=== PATIENT | male | born 1985 | race Caucasian/White ===

== ENCOUNTER 2018-05-11 10:39 | Emergency (ER) | payer OTHER ==
[~2018-05-11] VITALS: Ht 182.9 cm; Wt 146.0 kg
[~2018-05-11 10:39] MED LIST: METH-360 PO
[2018-05-11 11:06] LABS: CLARITY,URINE TURBID (Clear); COLOR,URINE YELLOW (Yellow); GLUCOSE, URINE NEGATIVE (Neg); KETONES,URINE NEGATIVE (Neg); LEUKOCYTE ESTERASE ,URINE NEGATIVE (Neg); NITRITES, URINE NEGATIVE (Neg); OCCULT BLOOD,URINE LARGE (Neg); PH,URINE 5.5 (4.8-8.0); PROTEIN,URINE 30 mg/dl (Neg); UROBILINOGEN,URINE 0.2 E.U/dL (0.2-1.0)
[2018-05-11 11:07] LABS: UA COLLECTION TYPE CLN CATCH MIDSTREAM
[2018-05-11] MEDS ORDERED: normal saline 1000ML IV soln IVB ONE (11:10)
[2018-05-11] MEDS ORDERED: ondansetron/PF 4mg/2ml inj IV ONE (11:10)
[2018-05-11] MEDS ORDERED: ketorolac trometh. 30mg/ml inj. IV ONE (11:10)
[2018-05-11] MEDS ORDERED: morphine 4 MG/ML inj SYRINge IV PRN (11:10)
[2018-05-11 11:16] LABS: RBC,URINE TNTC /HPF (0-2); WBC,URINE 0-4 /HPF (0-4)
[2018-05-11 11:18] LABS: SQUAMOUS EPITHELIAL CELL,UR FEW /LPF (FEW)
[2018-05-11 11:19] LABS: BACTERIA,URINE FEW /HPF (Neg); MUCUS STRANDS FEW /LPF (Neg)
[2018-05-11 11:34] LABS: BASOPHILS % (AUTO) 0.5 % (0-1); EOSINOPHILS # (AUTO) 0.1 X10'3 (0-0.9); EOSINOPHILS % (AUTO) 2.4 % (0-6); HEMOGLOBIN 15.4 g/dl (14.0-17.9); LYMPHOCYTES % (AUTO) 31.9 % (21-51); MEAN CORPUSCULAR HEMOGLOBIN 29.1 PG (27.0-31.0); MEAN CORPUSCULAR HGB CONC 34.1 g/dL (33.0-36.5); MEAN CORPUSCULAR VOLUME 85.2 FL (78-98); MONOCYTES # (AUTO) 0.5 X10'3 (0-0.9); MONOCYTES % (AUTO) 7.6 % (2-12); NEUTROPHILS # (AUTO) 3.6 X10'3 (1.8-7.7); NEUTROPHILS % (AUTO) 57.6 % (42-75); PLATELET COUNT 256 X10'3 (140-440); RED BLOOD COUNT 5.28 X10'6 (4.70-6.10); RED CELL DISTRIBUTION WIDTH 13.8 % (11.5-14.5); WHITE BLOOD COUNT 6.2 X10'3 (4.5-11.0)
[2018-05-11 11:43] LABS: ALANINE AMINOTRANSFERASE 56 U/L (12-78); ALBUMIN/GLOBULIN RATIO 1.1 (1.1-1.5); ALKALINE PHOSPHATASE 64 IU/L (46-116); ANION GAP 13 (8-16); ASPARTATE AMINO TRANSFERASE 28 U/L (10-37); BILIRUBIN,TOTAL 0.4 MG/DL (0.1-1.0); BLOOD UREA NITROGEN 20 MG/DL (7-18); BUN/CREATININE RATIO 20.4 (5.4-32.0); CALCIUM 9.2 MG/DL (8.5-10.1); CHLORIDE 104 MMOL/L (99-107); CREATININE 0.98 MG/DL (0.60-1.10); GLUCOSE 119 MG/DL (70-104); SODIUM 141 MMOL/L (135-145); TOTAL CARBON DIOXIDE 24.4 MMOL/L (24-32); TOTAL PROTEIN 7.8 G/DL (6.4-8.2); eGFR 88 ML/MIN
[2018-05-11 11:44] LABS: POTASSIUM 4.1 MMOL/L (3.5-5.1)
[2018-05-11] MEDS ORDERED: fentaNYL/PF 50MCG/1 ML 2ML syringe IV ONE (12:10)
[2018-05-11] MEDS ORDERED: HYDROcodone/acetaminophen 10/325mg tab PO ONE (12:10)
--- NOTE | 2018-05-11 12:26 | NUR ---
relieving RN for lunch, pt is sleeping, resp even and unlabored
[2018-05-11] MEDS ORDERED: ONDA4TAB6 PO (13:30)
[2018-05-11] MEDS ORDERED: IBUP-1986 PO (13:30)
[2018-05-11] MEDS ORDERED: HYDR-4353 PO (13:30)
[2018-05-11 13:42] VITALS: BP 132/60
== END 2018-05-11 13:44 | disposition home or self-care (01) ==
LOC: ER 10:39
DX: N20.2 Calculus of kidney with calculus of ureter (principal); I10 Essential (primary) hypertension; Z87.442 Personal history of urinary calculi; Z79.899 Other long term (current) drug therapy
CPT/HCPCS: 36415; 74176; 80053; 81001; 85025; 96374; 96375; 99284; J1885; J2270; J2405; J3010; J7030

== ENCOUNTER 2020-10-28 21:30 | Emergency (ER) | payer BC ==
[~2020-10-28] VITALS: Ht 182.9 cm; Wt 150.0 kg
[~2020-10-28 21:30] MED LIST changes: +IBUP-1986 PO; +ONDA4TAB6 PO
[2020-10-28 21:41] VITALS: BP 155/99
[2020-10-28] MEDS ORDERED: ONDA4TAB6 PO (22:42)
[2020-10-28] MEDS ORDERED: ALBU6.7H9 INH (22:42)
== END 2020-10-28 23:08 | disposition home or self-care (01) ==
LOC: ER 21:31
DX: U07.1 COVID-19 (principal); R19.7 Diarrhea, unspecified; R11.10 Vomiting, unspecified; R07.89 Other chest pain; I10 Essential (primary) hypertension; F12.90 Cannabis use, unspecified, uncomplicated; Z87.442 Personal history of urinary calculi; Z72.89 Other problems related to lifestyle; Z79.899 Other long term (current) drug therapy
CPT/HCPCS: 36415; 71045; 93005; 99285; U0003; U0005